=== PATIENT | male | born 2005 | race Hispanic/Latino ===

== ENCOUNTER 2023-05-03 13:45 | Emergency (ER) | payer OTHER ==
[~2023-05-03] VITALS: Ht 162.6 cm; Wt 79.8 kg
[2023-05-03 13:50] VITALS: BP 120/71; PULSE 84; RESP 16
[2023-05-03] MEDS: DEXAMETHASONE SOD PHOSPHATE 4 MG/ML 1ML VIAL IM ONE (16:27)
[2023-05-03] MEDS: KETOROLAC 60 MG VIAL (30MG/ML) IM ONE (16:28)
== END 2023-05-03 16:50 | disposition home or self-care (01) ==
LOC: EDH 13:45
DX: M25.522 Pain in left elbow (principal)
CPT/HCPCS: 99284; 73080; 96372 ×2; J1100; J1885